=== PATIENT | male | born 1985 | race Caucasian/White ===

== ENCOUNTER 2024-03-27 14:02 | Emergency (ER) | payer BC, SELFPAY ==
[2024-03-27 14:09] VITALS: BP 155/99; PULSE 75; TEMP 36.8; O2SAT 98; BMI 39.5
--- NOTE | 2024-03-27 14:15 | ED_ITS ---
HPI HPI - Extremity Injury (Lower) General Chief Complaint: Extremity Injury, Lower Stated Complaint: LOWER EXTREMITY INJURY, LEFT Time Seen by Provider: 03/27/24 14:06 Source: patient Mode of arrival: walk-in Limitations: no limitations History of Present Illness HPI Narrative: Patient is a 38-year-old male who presents to the emergency department for an injury to the left foot that occurred yesterday at his home. He states about 9 PM last night he tripped on a hose that was on his back porch and he inverted his left ankle. He complains of pain over the left fifth metatarsal radiating into the ankle. No specific left ankle pain. He took ibuprofen prior to arrival with improvement. No other associated injuries. He is ambulatory Related Data Previous Rx's ?Medication ?Instructions ?Recorded ketorolac 10 mg tablet 10 mg PO TID PRN pain #10 tabs 03/27/24 Allergies Allergy/AdvReac Type Severity Reaction Status Date / Time No Known Drug Allergies Allergy Verified 03/27/24 14:08 Opioid HPI Opioid Management Most Recent Pain and Opioid Data: No Data to Display Review of Systems ROS Constitutional Denies: fever or chills Cardiovascular Denies: chest pain Respiratory Denies: shortness of breath Gastrointestinal Denies: nausea or vomiting Musculoskeletal Reports: extremity pain, extremity swelling and limited range of motion; Denies: back pain, neck pain or joint pain Integumentary/Breast Denies: rash Neurological Denies: numbness in extremities or weakness in extremities Hematologic/Lymphatic Denies: easy bruising or easy bleeding PFSH PFSH Social History Little interest or pleasure in doing things: not at all Feeling down, depressed, or hopeless: not at all Exam Narrative Exam Narrative: Gen.: Awake, alert, in no distress Head: Normocephalic, atraumatic ENT: Moist mucous membranes Respiratory: No respiratory distress Extremities: Tenderness over the left fifth metatarsal with mild swelling, no obvious deformity. 2+ left DP pulse. No bony tenderness of the left lateral malleolus or medial malleolus. Normal flexion and extension of the toes of the left foot. Psych: Normal mood and affect Neuro: No focal neuro deficit Skin: Warm, dry, intact Constitutional Vital Signs, click to edit/add: Last Vital Signs Temp 98.2 F 03/27/24 14:09 Pulse 75 03/27/24 14:09 Resp 18 03/27/24 14:09 BP 155/99 H 03/27/24 14:09 Pulse Ox 98 03/27/24 14:09 O2 Del Method Room Air 03/27/24 14:09 Course Vital Signs Vital signs: Vital Signs Temperature 98.2 F 03/27/24 14:09 Pulse Rate 75 03/27/24 14:09 Respiratory Rate 18 03/27/24 14:09 Blood Pressure 155/99 H 03/27/24 14:09 Pulse Oximetry 98 03/27/24 14:09 Oxygen Delivery Method Room Air 03/27/24 14:09 Temperature 98.2 F 03/27/24 14:09 Pulse Rate 75 03/27/24 14:09 Respiratory Rate 18 03/27/24 14:09 Blood Pressure 155/99 H 03/27/24 14:09 Pulse Oximetry 98 03/27/24 14:09 Oxygen Delivery Method Room Air 03/27/24 14:09 MDM - Extremity Injury (Lower) MDM Narrative Medical decision making narrative: Patient declined pain medication in the ER. X-rays of the foot show no evidence of fracture or dislocation. Patient placed in an Dawson wrap and postop shoe and discharged home to follow-up with PCP. Neurovascularly intact at discharge. Rest, ice, elevate. Return to the ER if symptoms change or worsen. Patient states he has crutches at home. SHARED APC VISIT, PHYSICIAN ATTESTATION: [id number] I performed a substantive part of the MDM during the patient?s E/M visit. I personally evaluated and examined the patient. I personally made or approved the documented management plan and acknowledge its risk of complications. Medical Records Attestation: I reviewed the patient's medical records. Imaging Data XR foot: Attestation: I have reviewed the pertinent imaging results. Radiologist's impression: ITS Impressions Foot X-Ray 03/27/24 14:15 IMPRESSION: No acute fracture Electronically authenticated by: QIAN HARRIS Date: 03/27/2024 14:58 Discharge Plan Discharge Chief Complaint: Extremity Injury, Lower Clinical Impression: Sprain of left foot Patient Disposition: Home, Self-Care Time of Disposition Decision: 15:05 Condition: Good Prescriptions / Home Meds: New ketorolac 10 mg tablet 10 mg PO TID PRN (Reason: pain) Qty: 10 0RF Print Language: Palestinian Instructions: Foot Sprain (ED) Referrals: QIAN MARSH [Primary Care Provider] - 1 week
--- NOTE | 2024-03-27 14:15 | XR_ITS ---
[address] [address] Patient Name: QIAN OWEN MRN: [id number] date: 1985 Sex: M Assigned Patient Location: ER Current Patient Location: ED.MAIN Accession/Order Number: [id number] Exam Date: 03/27/2024 14:20 Report Date: 03/27/2024 14:58 At the request of: MARIE CAGLE Procedure: XR foot LT min 3V PROCEDURE: XR foot LT min 3V COMPARISON: None. HISTORY: fall FINDINGS: BONES:No acute fracture or dislocation. Mild enthesopathic spurring at the Achilles insertion SOFT TISSUES:Negative. No visible soft tissue swelling. EFFUSION:None visible. OTHER: Negative. XR/XR foot LT min 3V IMPRESSION: No acute fracture Electronically authenticated by: QIAN HARRIS Date: 03/27/2024 14:58
[2024-03-27 15:10] VITALS: BP 138/88; PULSE 86; O2SAT 98
== END 2024-03-27 15:11 | disposition home or self-care (01) ==
PROVIDERS: Emergency Provider Emergency Medicine; PCP Family Medicine
DX: S93.602A Unspecified sprain of left foot, initial encounter (principal); W18.40XA Slipping, tripping and stumbling without falling, unspecified, initial encounter
CPT/HCPCS: 73630; 99283